=== PATIENT | male | born 1965 | race Caucasian/White ===

== ENCOUNTER 2017-08-20 08:25 | Emergency (ER) | payer OTHER, BC ==
[2017-08-20 08:35] VITALS: BP 142/98
[2017-08-20] MEDS ORDERED: Ibuprofen 600 MG Tab PO ONE (08:54)
--- NOTE | 2017-08-20 08:56 | EDM.PDOC ---
ED HPI GENERAL MEDICAL PROBLEM - General Chief Complaint: Lower Extremity Injury/Pain Stated Complaint: BACK PAIN/WORK INJURY Time Seen by Provider: 08/20/17 08:35 Source of Information: Reports: Patient History Limitations: Reports: No Limitations - History of Present Illness INITIAL COMMENTS - FREE TEXT/NARRATIVE: The patient presents with lower back pain and pain to the left anterior thigh. He has been shoveling and using a bobcat to move snow over the past few days. Last night he had some pain in his low back mostly on the left side. This morning he woke up and still had the pain to the left low back and pain to the left anterior thigh. He has no numbness, weakness, bowel or bladder problems. He has never had trouble with his back before. Onset: Gradual Duration: Day(s): (Yesterday) Location: Reports: Back (Lower), Lower Extremity, Left Quality: Reports: Ache Severity: Moderate Improves with: Reports: None Worsens with: Reports: None Associated Symptoms: Reports: No Other Symptoms left lower leg/lower back Pain Score (Numeric/FACES): 5 - Related Data Allergies Allergy/AdvReac Type Severity Reaction Status Date / Time No Known Allergies Allergy Verified 08/20/17 08:35 Home Meds: Home Meds Ascorbate Calcium [Vitamin C] 500 mg PO DAILY 04/13/14 [History] Calcium Carbonate [Calcium] 600 mg PO DAILY 04/13/14 [History] Multivitamin [Men's Multi-Vitamin] 1 tab PO DAILY 04/13/14 [History] [place]-3 Fatty Acids [Fish Oil] 1,400 mg PO DAILY 04/13/14 [History] Cyclobenzaprine [Flexeril] 10 mg PO TID PRN #20 tab 08/20/17 [Rx] Hydrocodone/Acetaminophen [Hydrocodon-Acetaminophen 5-325] 1 - 2 each PO Q6HR PRN #20 tablet 08/20/17 [Rx] Past Medical History - Past Health History Medical/Surgical History: Denies Medical/Surgical History Respiratory History: Reports: Other (See Below) Other Respiratory History: positive for TB on skin tests, negative on XRAY - Infectious Disease History Other Infectious Disease History: positive skin tests for TB, negative on XRAY Social & Family History - Family History Family Medical History: Noncontributory - Tobacco Use Smoking Status *Q: Never Smoker Second Hand Smoke Exposure: Yes - Caffeine Use Caffeine Use: Reports: Coffee - Alcohol Use Days Per Week of Alcohol Use: 0 Number of Drinks Per Day: 0 Total Drinks Per Week: 0 - Recreational Drug Use Recreational Drug Use: No Drug Use in Last 12 Months: No Review of Systems - Review of Systems Review Of Systems: See Below Constitutional: Reports: No Symptoms Eyes: Reports: No Symptoms Ears: Reports: No Symptoms Nose: Reports: No Symptoms Respiratory: Reports: No Symptoms Cardiovascular: Reports: No Symptoms GI/Abdominal: Reports: No Symptoms Genitourinary: Reports: No Symptoms Musculoskeletal: Reports: Back Pain (Low), Leg Pain (Left) Skin: Reports: No Symptoms Neurological: Reports: No Symptoms ED EXAM, GENERAL - Physical Exam Exam: See Below Exam Limited By: No Limitations General Appearance: Alert, No Apparent Distress Ears: Normal External Exam Nose: Normal Inspection Head: Atraumatic, Normocephalic Neck: Normal Inspection Respiratory/Chest: No Respiratory Distress, Lungs Clear, Normal Breath Sounds Cardiovascular: Regular Rate, Rhythm, No Edema, No Murmur GI/Abdominal: Soft, Non-Tender, No Organomegaly, No Mass Back Exam: Other (Pain upon palpation to the low left back) Extremities: Normal Inspection Neurological: Alert, Oriented, Normal Reflexes, No Motor/Sensory Deficits Course - Vital Signs Last Recorded V/S: Last Vital Signs Temp 97.8 F 08/20/17 08:28 Pulse 78 08/20/17 08:28 Resp 18 08/20/17 08:28 BP 142/98 H 08/20/17 08:28 Pulse Ox 100 08/20/17 08:28 - Orders/Labs/Meds Orders: Active Orders 24 hr Category Date Time Status Lumbar Spine 2 or 3V [CR] Stat Exams 08/20/17 08:54 Taken Meds: Medications Discontinued Medications Generic Name Dose Route Start Last Admin Trade Name Tomaszq PRN Reason Stop Dose Admin Ibuprofen 600 mg 08/20/17 08:54 08/20/17 09:05 Motrin PO 08/20/17 08:55 600 mg ONETIME ONE Administration - Re-Assessments/Exams Free Text/Narrative Re-Assessment/Exam: 08/20/17 09:23 I ordered motrin 600mg by mouth and x-rays of his back. 08/20/17 09:31 His x-ray shows some mild arthritis. I will get him on a muscle relaxer and something more for pain. Departure - Departure Time of Disposition: 09:35 Disposition: Home, Self-Care 01 Condition: Good Clinical Impression: Sciatic hernia Lumbar strain Qualifiers: Encounter type: initial encounter Qualified Code(s): S39.012A - Strain of muscle, fascia and tendon of lower back, initial encounter - Discharge Information Prescriptions: Hydrocodone/Acetaminophen [Hydrocodon-Acetaminophen 5-325] 1 - 2 each PO Q6HR PRN #20 tablet PRN Reason: Pain Cyclobenzaprine [Flexeril] 10 mg PO TID PRN #20 tab PRN Reason: Pain Referrals: Moises Hickey PA-C [Primary Care Provider] - 1 Week Forms: ED Department Discharge, ED Return to Work/School Form Additional Instructions: Take an antiinflammatory such as motrin or aleve. You can also take flexeril or hydrocodone for pain. Do not drive when taking these medications. Put some ice on your back for 15 minutes 3 times per day for 2 days. Please return if you are worse. - My Orders Last 24 Hours: My Active Orders 08/20/17 08:54 Lumbar Spine 2 or 3V [CR] Stat - Assessment/Plan Last 24 Hours: My Active Orders 08/20/17 08:54 Lumbar Spine 2 or 3V [CR] Stat
--- NOTE | 2017-08-20 10:02 | CR ---
Lumbar spine: AP, lateral and coned-down lateral views centered to the lumbosacral junction were obtained. Severe disc space narrowing with vacuum phenomena is seen at L5-S1. Slight anterior osteophytes are scattered throughout the lumbar spine. Moderate disc space narrowing is noted at L2-L3. Slight posterior osteophytes are noted at L2-L3. Mild anterior wedging is noted at T12 which is old or developmental. Mild disc space narrowing is noted at T10-T11 and T11-T12. Slight posterior disc space narrowing is noted T12-L1. Pedicles are intact. Visualized transverse and spinous processes are intact. Sacroiliac joints are within normal limits. Impression: 1. Diffuse scattered degenerative change as described above. 2. Nothing acute is appreciated. Diagnostic code #2
== END 2017-08-20 09:52 | disposition home or self-care (01) ==
LOC: JD.ED 08:25
DX: S39.012A Strain of muscle, fascia and tendon of lower back, initial encounter (principal); M19.90 Unspecified osteoarthritis, unspecified site; Z77.22 Contact with and (suspected) exposure to environmental tobacco smoke (acute) (chronic); Z79.899 Other long term (current) drug therapy; X58.XXXA Exposure to other specified factors, initial encounter; Y93.H1 Activity, digging, shoveling and raking
CPT/HCPCS: 72100; 99284; A9270; 99283

== ENCOUNTER 2019-03-04 07:19 | Emergency (ER) | payer OTHER, BC ==
[2019-03-04 07:44] VITALS: BP 153/122; PULSE 106
[2019-03-04] MEDS ORDERED: predniSONE 20 MG Tab PO ONE (08:11)
[2019-03-04] MEDS ORDERED: Acetaminophen 325 MG Tab PO ONE (08:11)
[2019-03-04] MEDS ORDERED: Ketorolac 60 MG/2 ML SDV IM ONE (08:11)
--- NOTE | 2019-03-04 09:00 | EDM.PDOC ---
ED HPI GENERAL MEDICAL PROBLEM - General Chief Complaint: Lower Extremity Injury/Pain Stated Complaint: LEFT ANKLE SWOLLEN Time Seen by Provider: 03/04/19 07:44 Source of Information: Reports: Patient, RN Notes Reviewed - History of Present Illness INITIAL COMMENTS - FREE TEXT/NARRATIVE: 53-year-old male comes in with left leg and ankle pain. He does have history of chronic low back pain. He has had a lot of steroid injections. 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 For about the past week he has been having radiation of pain down into the left leg and states there is also been increased pain and swelling of the medial left ankle and foot. He is not aware of any particular injury. States the pain got worse after his last chiropractor treatment. He is not having any current numbness or tingling. He has had no focal weakness. No bladder symptoms. He does take at least occasional Flexeril muscle relaxer but that is not helping the current discomfort. Left Leg Pain Score (Numeric/FACES): 6 Back Pain Score (Numeric/FACES): 6 - Related Data Allergies Allergy/AdvReac Type Severity Reaction Status Date / Time No Known Allergies Allergy Verified 03/04/19 07:33 Home Meds: Home Meds Ascorbate Calcium [Vitamin C] 500 mg PO BEDTIME 04/13/14 [History] Calcium Carbonate [Calcium] 600 mg PO BEDTIME 04/13/14 [History] Multivitamin [Men's Multi-Vitamin] 1 tab PO DAILY 04/13/14 [History] [place]-3 Fatty Acids [Fish Oil] 1,200 mg PO DAILY 04/13/14 [History] Cyclobenzaprine [Flexeril] 10 mg PO TID PRN #20 tab 08/20/17 [Rx] Aspirin [Halfprin] 81 mg PO BEDTIME 03/04/19 [History] Cholecalciferol (Vitamin D3) [Vitamin D3] 400 intlu PO DAILY 03/04/19 [History] Naproxen [Naprosyn] 500 mg PO Q12HR #14 tab 03/04/19 [Rx] Vitamin E 400 intnl unit PO BEDTIME 03/04/19 [History] atorvaSTATin [Lipitor] 10 mg PO BEDTIME 03/04/19 [History] Past Medical History - Past Health History Medical/Surgical History: Denies Medical/Surgical History HEENT History: Reports: None Respiratory History: Reports: Other (See Below) Other Respiratory History: positive for TB on skin tests, negative on XRAY Musculoskeletal History: Reports: Back Pain, Chronic Other Musculoskeletal History: back pain since 2018 Dermatologic History: Reports: Psoriasis Other Dermatologic History: Past psoriasis on scalp - Infectious Disease History Infectious Disease History: Reports: Chicken Pox, Shingles Other Infectious Disease History: positive skin tests for TB, negative on XRAY, past shingles (5 years or longer) - Past Surgical History HEENT Surgical History: Reports: Tonsillectomy Social & Family History - Family History Family Medical History: Noncontributory - Tobacco Use Smoking Status *Q: Never Smoker - Caffeine Use Caffeine Use: Reports: Coffee Review of Systems - Review of Systems Review Of Systems: See Below Constitutional: Denies: Chills, Fever Eyes: Reports: No Symptoms Mouth/Throat: Reports: No Symptoms Respiratory: Denies: Shortness of Breath Cardiovascular: Denies: Chest Pain GI/Abdominal: Denies: Abdominal Pain, Nausea, Vomiting Musculoskeletal: Reports: Back Pain, Leg Pain, Joint Pain Skin: Reports: No Symptoms (Left ankle and foot) Neurological: Reports: Difficulty Walking (Pain is worse with movement). Denies : Numbness, Tingling, Weakness ED EXAM, GENERAL - Physical Exam Exam: See Below Exam Limited By: No Limitations General Appearance: Alert, Mild Distress Head: Atraumatic Neck: Supple Respiratory/Chest: No Respiratory Distress, Lungs Clear, Normal Breath Sounds Cardiovascular: Regular Rate, Rhythm Back Exam: Paraspinal Tenderness (Mild tenderness left low back). No: CVA Tenderness (L), CVA Tenderness (R), Vertebral Tenderness Extremities: Normal Inspection, Normal Range of Motion Neurological: Alert, Oriented, No Motor/Sensory Deficits Skin Exam: Warm, Dry, Normal Color Course - Vital Signs Last Recorded V/S: Last Vital Signs Temp 96.4 F 03/04/19 07:34 Pulse 106 H 03/04/19 07:34 Resp 20 03/04/19 07:34 BP 153/122 H 03/04/19 07:34 Pulse Ox 100 03/04/19 07:34 - Orders/Labs/Meds Meds: Medications Discontinued Medications Generic Name Dose Route Start Last Admin Trade Name Freq PRN Reason Stop Dose Admin Acetaminophen 975 mg 03/04/19 08:11 03/04/19 08:34 Tylenol PO 03/04/19 08:12 975 mg NOW ONE Administration Ketorolac Tromethamine 60 mg 03/04/19 08:11 03/04/19 08:36 Toradol IM 03/04/19 08:12 60 mg ONETIME ONE Administration Prednisone 60 mg 03/04/19 08:11 03/04/19 08:35 Prednisone PO 03/04/19 08:12 60 mg ONETIME ONE Administration - Re-Assessments/Exams Free Text/Narrative Re-Assessment/Exam: 03/04/19 16:05 We did give Toradol 60 mg IM, prednisone 60 mg by mouth and also Tylenol 975 mg by mouth. I did write an order for physical therapy for his low back. We'll hold off on MRI for now. I believe he needs a period of treatment to see if we can get some resolution of symptoms. Discharge instructions as documented. Departure - Departure Time of Disposition: 08:55 Disposition: Home, Self-Care 01 Condition: Fair Clinical Impression: Back pain Qualifiers: Back pain location: low back pain Chronicity: acute Sciatica presence: with sciatica Sciatica laterality: sciatica of left side - Discharge Information Prescriptions: Naproxen [Naprosyn] 500 mg PO Q12HR #14 tab Instructions: Acute Back Pain, Adult Referrals: Moises Hickey PA-C [Primary Care Provider] - Forms: ED Department Discharge, ED Return to Work/School Form Additional Instructions: Naprosyn 500 mg twice daily with food, to drink plenty of water when taking this medication. Prednisone 40 mg daily, you have been given your first dose for today, next dose tomorrow. You also may take Tylenol 2-3 times daily for extra pain relief. Off work for today and tomorrow, return to work Saturday with prior restrictions. Continue Physical therapy for ankle, start physical therapy for your low back pain and sciatica. See Dr. Hebert next Saturday as planned.
== END 2019-03-04 09:18 | disposition home or self-care (01) ==
LOC: JD.ED 07:19
DX: M54.42 Lumbago with sciatica, left side (principal); Z79.899 Other long term (current) drug therapy; Z79.82 Long term (current) use of aspirin; Z98.890 Other specified postprocedural states
CPT/HCPCS: 96372; 99283; A9270; J1885

== ENCOUNTER 2019-05-21 07:00 | Day surgery (SDC) | payer BC, OTHER ==
--- NOTE | 2019-05-21 07:29 | PCM.PREANE ---
Preanesthetic Assessment - Anesthesia/Transfusion/Family Hx Anesthesia History: Prior Anesthesia Without Reaction Transfusion History: No Prior Transfusion(s) - Review of Systems General: No Symptoms Pulmonary: No Symptoms Cardiovascular: No Symptoms Gastrointestinal: No Symptoms Neurological: No Symptoms Other: Reports: None - Physical Assessment NPO Status Date: 05/21/19 NPO Status Time: 05:00 (clq) ASA Class: 2 Mental Status: Alert & Oriented x3 Airway Class: Mallampati = 1 Dentition: Reports: Normal Dentition Thyro-Mental Finger Breadths: 3 Mouth Opening Finger Breadths: 3 ROM/Head Extension: Full Lungs: Clear to Auscultation, Normal Respiratory Effort Cardiovascular: Regular Rate, Regular Rhythm - Allergies Allergies/Adverse Reactions: Allergies Allergy/AdvReac Type Severity Reaction Status Date / Time No Known Allergies Allergy Verified 05/20/19 14:00 - Blood Blood Available: No Product(s) Available: None - Acknowledgements Anesthesia Type Planned: MAC Pt an Appropriate Candidate for the Planned Anesthesia: Yes Alternatives and Risks of Anesthesia Discussed w Pt/Guardian: Yes Pt/Guardian Understands and Agrees with Anesthesia Plan: Yes PreAnesthesia Questionnaire - Past Health History Medical/Surgical History: Denies Medical/Surgical History HEENT History: Reports: Hard of Hearing, Other (See Below) Other HEENT History: acute pharyngitis Cardiovascular History: Reports: High Cholesterol Respiratory History: Reports: Other (See Below) Other Respiratory History: positive for TB on skin tests, negative on XRAY Gastrointestinal History: Reports: Gastritis, GERD, Hemorrhoids Other Gastrointestinal History: epigastric pain, RUQ pain, rectal bleeding Genitourinary History: Reports: BPH, Urinary Incontinence, Other (See Below) Other Genitourinary History: prostate disease, urinary dribbling, urinary frequency, BENNIE Musculoskeletal History: Reports: Back Pain, Chronic Other Musculoskeletal History: back pain since 2018 Neurological History: Reports: Other (See Below) Other Neuro History: low back pain with radiculopathy affecting left lower extremity Dermatologic History: Reports: Psoriasis Other Dermatologic History: Past psoriasis on scalp - Infectious Disease History Infectious Disease History: Reports: Chicken Pox, Shingles Other Infectious Disease History: positive skin tests for TB, negative on XRAY, past shingles (5 years or longer) - Past Surgical History Head Surgeries/Procedures: Reports: None HEENT Surgical History: Reports: Tonsillectomy Cardiovascular Surgical History: Reports: None Respiratory Surgical History: Reports: None GI Surgical History: Reports: None Other Female Surgeries/Procedures: prostate surgery Male Surgical History: Reports: Other (See Below) Endocrine Surgical History: Reports: None Neurological Surgical History: Reports: None - SUBSTANCE USE Smoking Status *Q: Never Smoker Second Hand Smoke Exposure: Yes Recreational Drug Use History: No - HOME MEDS Home Medications: Home Meds Ascorbate Calcium [Vitamin C] 500 mg PO BEDTIME 04/13/14 [History] Calcium Carbonate [Calcium] 600 mg PO BEDTIME 04/13/14 [History] Multivitamin [Men's Multi-Vitamin] 1 tab PO DAILY 04/13/14 [History] Cyclobenzaprine [Flexeril] 10 mg PO TID PRN #20 tab 08/20/17 [Rx] Aspirin [Halfprin] 81 mg PO BEDTIME 03/04/19 [History] Vitamin E 400 intnl unit PO BEDTIME 03/04/19 [History] atorvaSTATin [Lipitor] 10 mg PO BEDTIME 03/04/19 [History] Cholecalciferol (Vitamin D3) [Vitamin D3] 2,000 unit PO DAILY 05/20/19 [History] Fish Oil/[place]-3 Fatty Acids [Fish Oil 1,000 MG] 1 gm PO DAILY 05/20/19 [History ] Tamsulosin HCl [Flomax] 0.4 mg PO DAILY 05/20/19 [History] - CURRENT (IN HOUSE) MEDS Current Meds: Current Medications Lactated Ringer's (Ringers, Lactated) 1,000 mls @ 125 mls/hr IV ASDIRECTED ZENIA Stop: 05/21/19 23:00 Lidocaine/Sodium Bicarbonate (Buffered Lidocaine 1% In Ns 8.4%) 0.25 ml IDERM ONETIME PRN PRN Reason: Prior to IV Start Stop: 05/21/19 23:00 Sodium Chloride (Saline Flush) 10 ml FLUSH ASDIRECTED PRN PRN Reason: Keep Vein Open Stop: 05/21/19 23:00
[2019-05-21] MEDS ORDERED: Propofol 200 MG/20 ML SDV ONE ×3 (07:39→08:05)
[2019-05-21] MEDS ORDERED: Lidocaine 1% 4 ML ONE ×2 (07:41→08:16)
[2019-05-21] MEDS ORDERED: Lactated Ringers 1,000 ML IV SCH (07:54)
[2019-05-21] MEDS ORDERED: Lidocaine 1%/Sod Bicarbonate in NS 8.4% 1 ML Syringe IDERM PRN (07:54)
[2019-05-21] MEDS ORDERED: Sodium Chloride 0.9% 10 ML Syringe FLUSH PRN (07:54)
[2019-05-21] MEDS ORDERED: fentaNYL 100 MCG/2 ML SDV ONE ×2 (08:03→08:57)
[2019-05-21] MEDS ORDERED: Ketorolac 30 MG/ML SDV IVPUSH ONE (08:45)
--- NOTE | 2019-05-21 08:49 | PCM.PRNOTE ---
- Free Text/Narrative Note: Date: 05/21/2019 Procedure: colonoscopy Endoscopist: Amrik Mora MD Findings: tortuous sigmoid colon was very difficult to navigate. Prep was fair; there was sticky stool coating the mucosa of the proximal colon makin visualization suboptimal. The ileocecal valve was visualized. No polyps, no significant diverticular disease, no significant hemorrhoids on retroflexion. Detailed report: The patient was taken to the GI suite and placed in left lateral decubitus position. Timeout was performed. Monitored sedation was initiated, and visual inspection of the anus showed no gross abnormalities. Digital rectal exam was unremarkable. The colonoscope was advanced all the way to the ileocecal valve. Navigation of the sigmoid was difficult due to its tortuosity. The proximal colon was noted to have sticky stool coating the mucosa, making visualization more difficult. Prep was fair. The ileocecal valve was visualized, and the scope was slowly retracted, and all mucosal surfaces inspected. No polyps or other suspicious lesions were identified. One diverticula was noted in the sigmoid colon. There was noted mild mucosal trauma from the scope during difficult navigation of the sigmoid. On retroflexion in the rectum, no significant hemorrhoidal disease was identified. The patient tolerated the procedure well. Amrik Mora MD General Surgery
[2019-05-21] MEDS ORDERED: fentaNYL 100 MCG/2 ML SDV IVPUSH ONE (08:54)
[2019-05-21 09:29] VITALS: BP 128/93; PULSE 78
--- NOTE | 2019-05-21 09:37 | PCM48HPAN ---
Post Anesthesia Note - EVALUATION WITHIN 48HRS OF ANESTHETIC Vital Signs in Normal Range: Yes Patient Participated in Evaluation: Yes Respiratory Function Stable: Yes Airway Patent: Yes Cardiovascular Function Stable: Yes Hydration Status Stable: Yes Pain Control Satisfactory: No (patient has severe back pain, preexisting problem. Analgetics ordered.) Nausea and Vomiting Control Satisfactory: Yes Mental Status Recovered: Yes Vital Signs: Last Vital Signs Temp 97.9 F 05/21/19 09:20 Pulse 78 05/21/19 09:20 Resp 15 05/21/19 09:20 BP 128/93 H 05/21/19 09:20 Pulse Ox 97 05/21/19 09:20
[2019-05-21] MEDS ORDERED: Lactated Ringers 1,000 ML ONE (12:38)
== END 2019-05-21 09:57 | disposition home or self-care (01) ==
LOC: JD.SDS 07:00
PROVIDERS: ATTEND Surgery
DX: K62.5 Hemorrhage of anus and rectum (principal); Q43.8 Other specified congenital malformations of intestine; K21.9 Gastro-esophageal reflux disease without esophagitis; E78.00 Pure hypercholesterolemia, unspecified; H90.3 Sensorineural hearing loss, bilateral; L40.9 Psoriasis, unspecified; Z79.82 Long term (current) use of aspirin; Z79.899 Other long term (current) drug therapy
CPT/HCPCS: 45378; J1885; J2001; J2704; J3010; J7120; 00811

== ENCOUNTER 2022-04-13 09:35 | Emergency (ER) | payer OTHER, BC ==
[2022-04-13] MEDS ORDERED: Sodium Chloride 0.9% 10 ML Syringe FLUSH PRN (10:21)
[2022-04-13] MEDS ORDERED: methylPREDNISolone Sodium Succinate 125 MG/2 ML SDV IVPUSH ONE (10:21)
[2022-04-13] MEDS ORDERED: Ketorolac 30 MG/ML SDV IVPUSH SCH (10:30)
[2022-04-13 13:07] VITALS: BP 119/87; PULSE 99
== END 2022-04-13 13:07 | disposition home or self-care (01) ==
LOC: JD.ED 09:35
DX: M47.812 Spondylosis without myelopathy or radiculopathy, cervical region (principal); M47.816 Spondylosis without myelopathy or radiculopathy, lumbar region; M54.42 Lumbago with sciatica, left side; E78.00 Pure hypercholesterolemia, unspecified; K21.9 Gastro-esophageal reflux disease without esophagitis; Z79.82 Long term (current) use of aspirin; Z79.899 Other long term (current) drug therapy
CPT/HCPCS: 36415; 80053; 85007; 85027; 85652; 86140; 96374; 96375; 99283; J1885; J2930; J3490

== ENCOUNTER 2022-08-20 09:15 | Emergency (ER) | payer OTHER ==
[2022-08-20] MEDS ORDERED: Ketorolac 60 MG/2 ML SDV IM ONE (10:21)
[2022-08-20] MEDS ORDERED: methylPREDNISolone Sodium Succinate 125 MG/2 ML SDV IM ONE (10:21)
[2022-08-20 11:43] VITALS: BP 126/97; PULSE 94
== END 2022-08-20 11:42 | disposition home or self-care (01) ==
LOC: JD.ED 09:15
DX: M54.41 Lumbago with sciatica, right side (principal); M54.42 Lumbago with sciatica, left side; G89.29 Other chronic pain; K21.9 Gastro-esophageal reflux disease without esophagitis; N40.0 Benign prostatic hyperplasia without lower urinary tract symptoms; E78.00 Pure hypercholesterolemia, unspecified; Z79.82 Long term (current) use of aspirin; Z79.899 Other long term (current) drug therapy
CPT/HCPCS: 96372; 99283; J1885; J2930